=== PATIENT | female | born 1980 | race Caucasian/White ===

== ENCOUNTER 2017-03-02 04:00 | Emergency (ER) | payer MEDICAID ==
--- NOTE | 2017-03-02 04:53 | PD ---
HPI Chief Complaint Left lower quadrant pain,back pain Date Seen: Mar 02, 2017 Time Seen: 04:49 Travel History International Travel<30 Days: No Contact w/Intl Traveler<30Days: No Known Affected Area: No History of Present Illness HPI 36-year-old at 17 weeks today comes into the ED OB complaining of left lower quadrant pain that has been present since the beginning of her radiating at times to her back. Denies dysuria denies frequency of urination. She is concerned about her history of 3 prior miscarriages and she is seen in the [facility] Department. No vaginal bleeding is noted History Past Medical History Medical History: Denies Significant Hx Obstetric History Obstetric History Spontaneous vaginal delivery 1, 3 prior miscarriages Past Surgical History Surgical History: No Previous Surgery Family History Family History: Negative Social History Alcohol Use: No Tobacco Use: No Substance Abuse: No Review of Systems Except as stated in HPI: all other systems reviewed are Neg Physical Exam Narrative GENERAL: Well-nourished, well-developed patient. SKIN: Warm and dry. HEAD: Normocephalic and atraumatic. EYES: No scleral icterus. No injection or drainage. ENT: No nasal drainage noted. Mucous membranes pink. Airway patent. NECK: Supple, trachea midline. No JVD. CARDIOVASCULAR: Regular rate and rhythm without murmurs, gallops, or rubs. RESPIRATORY: Breath sounds equal bilaterally. No accessory muscle use. BREASTS: Bilateral exam showed no masses , no retractions, no nipple discharge. ABDOMEN/GI: Abdomen soft, non-tender, bowel sounds present, no rebound, no guarding,no pain with palpation in any of the quadrants. Gravid to [16-] weeks size Fundal Height: [-] GENITOURINARY: External Genitalia: intact and normal in appearance BUS glands: [Normal-] Cervix: [Posterior-] Dilatation: [-Closed] Effacement: [-Long] Station: [-High] Presentation: [Unknown-] Membranes: Intact Uterine Contractions: Absent FHT's: Per Doppler 142 Category: [-] Baseline: [-] Reactive: [-] Variability: [-] Decels: [-] EXTREMITIES: No cyanosis or edema. BACK: Nontender without obvious deformity. No CVA tenderness. NEUROLOGICAL: Awake and alert. Motor and sensory grossly within normal limits. Five out of 5 muscle strength in all muscle groups. Normal speech. Data Data Vital Signs Reviewed: Yes MDM Plan 36-year-old female at 17 weeks gestation with mild left lower quadrant pain. Request work release for today which was given Follow-up with health Department as directed Diagnosis Diagnosis: Primary Impression: 17 weeks gestation of Additional Impression: with abdominal pain of left lower quadrant, antepartum Disposition: 01 DISCHARGE HOME Rahel Jiménez MD Mar 02, 2017 04:53
== END 2017-03-02 04:55 | disposition home or self-care (01) ==
LOC: HOBED 04:00
DX: O26.892 Other specified pregnancy related conditions, second trimester (principal); Z3A.17 17 weeks gestation of pregnancy
CPT/HCPCS: 99284

== ENCOUNTER 2017-04-17 18:05 | Emergency (ER) | payer MEDICAID ==
[2017-04-17] MEDS ORDERED: SODIUM CHLOR 0.9% 1000 ML INJ 1,000 ML IV SCH (18:44)
[2017-04-17] MEDS ORDERED: ACETAMINOPHEN 325 MG TAB PO ONE (19:00)
--- NOTE | 2017-04-17 19:00 | PD ---
HPI Travel History International Travel<30 Days: No Contact w/Intl Traveler<30Days: No Known Affected Area: No History of Present Illness HPI This patient is a 36-year-old 2 para 1 EDC is August 10, 2017 presently at 23 weeks and 4 days patient was brought in by EMS she has the chief complaint of a headache which started at 11 AM and pain in both of her legs also has pain in the suprapubic area that also started earlier today pain described as sharp constant she states that the pain always hurts severe the baby is very active States that she discuss this with her doctor and nothing has been done today No rupture of membranes no vaginal bleeding no fever no chills no nausea no vomiting no diarrhea or constipation Last had a bowel movement earlier today Last ate at around 9 it stayed down Has urinary frequency but no pain with urination No discharge odors or itching 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 6 oz. vaginal delivery uncomplicated Past Surgical History Surgical History: No Previous Surgery Family History Narrative Family History Father with heart disease Social History Alcohol Use: No Tobacco Use: No Substance Abuse: No Allergies-Medications (Allergen,Severity, Reaction): Coded Allergies: No Known Allergies (Unverified , 04/17/17) Review of Systems General / Constitutional: No: Fever, Weight Gain, Weight Loss, Chills, Other Eyes: No: Diploplia, Blurred Vision, Visual changes, Pain, Photophobia, Other HENT: Headaches Cardiovascular: No: Irregular Rhythm, Chest Pain or Discomfort, Palpitations, Tachycardia, Syncope, Varicosities, Edema, Cyanosis, Other Respiratory: No: Cough, Short of Breath, Wheezing, Other Gastrointestinal: Abdominal Pain (as per history of present illness) Genitourinary: Frequency (as per history of present illness) Musculoskeletal: Weakness Skin: No Rash, No Itching, No Dryness, No Lumps, No Change in Pigmentation, No Change in Nails, No Alopecia, No Lesions, No Breast Lumps, No Breast Tenderness , No Breast Swelling, No Other Neurologic: No: Weakness, Dizziness, Syncope, Focal Abnormalities, Coordination Problem, Headache, Slurred Speech, Seizures, Other Physical Exam Narrative GENERAL: Well-nourished, well-developed patient. Alert oriented 3 and cooperative in no acute distress SKIN: Warm and dry. HEAD: Normocephalic and atraumatic. EYES: No scleral icterus. No injection or drainage. Conjunctiva are pink ENT: No nasal drainage noted. Mucous membranes pink. Airway patent. Mucous membranes are moist NECK: Supple, trachea midline. No JVD. No adenopathy no thyroid enlargement CARDIOVASCULAR: Regular rate and rhythm without murmurs, gallops, or rubs. No tachycardia RESPIRATORY: Breath sounds equal bilaterally. No accessory muscle use. No respiratory difficulty ABDOMEN/GI: Gravid consistent with stated gestational age soft no epigastric or right upper quadrant tenderness bowel sounds are normal mild suprapubic tenderness the uterus is soft no palpable contractions no rebound no organomegaly Gravid to [-] weeks size 24 weeks Fundal Height: [-] GENITOURINARY: Speculum exam is done: No blood no fluid no discharge thin white mucus the cervix is grossly closed grossly thick External Genitalia: intact and normal in appearance BUS glands: [-] Cervix: [-] Posterior firm Dilatation: [-] 0 Effacement: [-] 0 Station: [-] High Presentation: [-] Vertex on ultrasound Membranes: [intact Uterine Contractions: [-]0 FHT's: Category: [-] 1 Baseline: [-] 150 Reactive: [-] + Variability: [-] Moderate Decels: [-] 0 EXTREMITIES: No cyanosis or edema. 2+ reflexes nonbrisk BACK: Nontender without obvious deformity. No CVA tenderness. No tenderness at all on the back NEUROLOGICAL: Awake and alert. Motor and sensory grossly within normal limits. Five out of 5 muscle strength in all muscle groups. Normal speech. Data Data Vital Signs Reviewed: Yes (blood pressure is 124/75 pulse 76 temperature is 99.4) Orders Vital Signs (Adult) .ON ADMISSION (04/17/17 18:29) ^ Labor Status (04/17/17 18:29) Urinalysis - C+S If Indicated (04/17/17 18:29) ^ Hydration (04/17/17 18:29) Cbc No Diff, Includes Plts (04/17/17 18:44) Comprehensive Metabolic Panel (04/17/17 18:44) Fibronectin (04/17/17 18:44) Sodium Chlor 0.9% 1000 Ml Inj (Ns 1000 M (04/17/17 18:44) Labs Bedside ultrasound has been done the BPD is 5.51 equaling 22 weeks and 6 days Baby is very active Vertex presentation on ultrasound Largest pocket is 6.54 x 7.34 Posterior grade 1 placenta Cervical length 3.89 No funneling at the internal os MDM Medical Record Reviewed: No (no records are available) Interpretation(s) 36-year-old at 23 weeks and 4 days No clinical evidence of labor rupture of membranes Possible syncopal episode Rule out UTI Narrative Course / MDM Laboratory data; fibronectin is negative White count 11.2 hemoglobin 11 hematocrit 33 CMP within normal limits Urinalysis is negative Plan IV fluid hydration normal saline running upon presentation with EMS CBC CMP urinalysis fibronectin to evaluate for risk of labor These results were given to the patient She has been hydrated Baby is active No contractions Will give Vistaril 50 mg by mouth single dose Discharge home kick counts She is to make an appointment with her physician within the next 24-48 hours Diagnosis Diagnosis: Primary Impression: with 23 completed weeks gestation Additional Impression: Musculoskeletal pain Disposition: DISCHARGE HOME Condition: Stable Fela Goodrich MD Apr 17, 2017 19:00
[2017-04-17 19:22] LABS: HEMATOCRIT 33.1 % (35.0-46.0); MEAN CELL VOLUME 90.6 FL (80.0-100.0); MEAN CORPUSCULAR HEMOGLOBIN 30.1 PG (27.0-34.0); MEAN CORPUSCULAR HGB CONC 33.2 % (32.0-36.0); PLATELET COUNT 178 TH/MM3 (150-450); RED BLOOD COUNT 3.66 MIL/MM3 (4.00-5.30); RED CELL DISTRIBUTION WIDTH 14.5 % (11.6-17.2); REVIEW FLAG FINAL; WHITE BLOOD COUNT 11.2 TH/MM3 (4.0-11.0)
[2017-04-17 19:26] LABS: BLOOD, URINE NEG (NEG); GLUCOSE,URINE NEG (NEG); KETONE, URINE NEG (NEG); NITRITE,URINE NEG (NEG); URINE COLOR LIGHT-YELLOW (YELLW/STRAW)
[2017-04-17 19:33] LABS: ALT (GPT) 29 U/L (10-53); ANION GAP 9 MEQ/L (5-15); AST (GOT) 25 U/L (15-37); BLOOD UREA NITROGEN 8 MG/DL (7-18); CHLORIDE 104 MEQ/L (98-107); GLOMERULAR FILTRATION RATE 136 ML/MIN (>89); POTASSIUM 3.6 MEQ/L (3.5-5.1); SODIUM (NA) 137 MEQ/L (136-145)
[2017-04-17 19:36] LABS: ALKALINE PHOSPHATASE 51 U/L (45-117); TOTAL BILIRUBIN ADULT 0.2 MG/DL (0.2-1.0)
[2017-04-17 19:56] LABS: BACTERIA, URINE RARE /hpf; COMMENT (UR) CULT NOT INDICATED; COMMENT2 (UR) CULT NOT INDICATED; CULTURE IF INDICATED CULT NOT INDICATED; RBC, URINE 0-2 /hpf (0-3); SQUAMOUS EPITHELIAL CELL URINE 0-5 /hpf (0-5); WBC, URINE 0-2 /hpf (0-5)
== END 2017-04-17 19:15 | disposition home or self-care (01) ==
LOC: HOBED 18:05
DX: O09.522 Supervision of elderly multigravida, second trimester (principal); M79.1 Myalgia; Z3A.23 23 weeks gestation of pregnancy
CPT/HCPCS: 80053; 81001; 82731; 85027; 99284

== ENCOUNTER 2017-07-25 20:02 | Emergency (ER) | payer MEDICAID ==
--- NOTE | 2017-07-25 20:48 | PD ---
HPI Chief Complaint Contractions Date Seen: Jul 25, 2017 Time Seen: 20:44 Travel History International Travel<30 Days: No Contact w/Intl Traveler<30Days: No Known Affected Area: No History of Present Illness HPI 37-year-old at 38 weeks 5 days comes in complaining of contractions for the past 2 hours. Her spouse states that she has nocturnal contractions almost every night but they have lasted for longer this evening. Patient denies rupture membranes or vaginal bleeding. She has been seen by Dr Dale in [place] and denies obstetric complications. She is group B strep positive and has a history of a spontaneous vaginal delivery in the past Weeks Gestation: 38 Para: 1 : 5 Miscarriage: 3 History Past Medical History Medical History: Denies Significant Hx Obstetric History Obstetric History 1 Spontaneous miscarriage 3 Past Surgical History Surgical History: No Previous Surgery Family History Family History: Negative Social History Alcohol Use: No Tobacco Use: No Substance Abuse: No Allergies-Medications (Allergen,Severity, Reaction): Coded Allergies: No Known Allergies (Unverified , 04/17/17) Review of Systems Except as stated in HPI: all other systems reviewed are Neg Physical Exam Narrative GENERAL: Well-nourished, well-developed patient. SKIN: Warm and dry. HEAD: Normocephalic and atraumatic. EYES: No scleral icterus. No injection or drainage. ENT: No nasal drainage noted. Mucous membranes pink. Airway patent. NECK: Supple, trachea midline. No JVD. CARDIOVASCULAR: Regular rate and rhythm without murmurs, gallops, or rubs. RESPIRATORY: Breath sounds equal bilaterally. No accessory muscle use. BREASTS: Bilateral exam showed no masses , no retractions, no nipple discharge. ABDOMEN/GI: Abdomen soft, non-tender, bowel sounds present, no rebound, no guarding Gravid to [-38] weeks size Fundal Height: [-] GENITOURINARY: External Genitalia: intact and normal in appearance BUS glands: [-Normal] Cervix: [-Posterior] Dilatation: [1-2] Effacement: [-60] Station: [-2] Presentation: [Vertex] Membranes: [intact ] Uterine Contractions: [Every 5-] FHT's: Category: [-1] Baseline: [-140] Reactive: [-Moderate] Variability: [-Moderate] Decels: [-Absent] EXTREMITIES: No cyanosis or edema. BACK: Nontender without obvious deformity. No CVA tenderness. NEUROLOGICAL: Awake and alert. Motor and sensory grossly within normal limits. Five out of 5 muscle strength in all muscle groups. Normal speech. Recheck after 2 hours, no cervical change. Patient states contractions have decreased in intensity. Data Data Vital Signs Reviewed: Yes Group B Strep: Positive MDM Medical Record Reviewed: Yes Plan 37-year-old who is at 3839 weeks gestation and false labor Group B strep positive Plan for discharge and follow-up with OB provider this week Diagnosis Diagnosis: Primary Impression: Advanced maternal age in multigravida Additional Impressions: False labor after 37 completed weeks of gestation Positive GBS test Disposition: 01 DISCHARGE HOME Rahel Jiménez MD Jul 25, 2017 20:48
== END 2017-07-25 22:41 | disposition home or self-care (01) ==
LOC: HOBED 20:02
DX: O09.523 Supervision of elderly multigravida, third trimester (principal); O47.1 False labor at or after 37 completed weeks of gestation; O99.820 Streptococcus B carrier state complicating pregnancy; Z3A.38 38 weeks gestation of pregnancy
CPT/HCPCS: 59025

== ENCOUNTER 2017-08-03 10:59 | Emergency (ER) | payer MEDICAID ==
[~2017-08-03] VITALS: Ht 167.6 cm; Wt 90.7 kg
--- NOTE | 2017-08-03 11:30 | PD ---
HPI Chief Complaint Vaginal Bleeding Date Seen: Aug 03, 2017 Travel History International Travel<30 Days: No Contact w/Intl Traveler<30Days: No History of Present Illness HPI Mrs. Hwang is a at 40/0 weeks gestation presenting with vaginal bleeding. She states that this morning she found to quarter-sized drops of blood on her pad and decided to present to the OB ED for evaluation. She denies any contractions, loss of fluid, discharge, or dysuria. She does endorse good movement. She has been seen by Dr Dale in [place] and denies obstetric complications. She is group B strep positive and has a history of a spontaneous vaginal delivery in the past Weeks Gestation: 40 Para: 5 : 1 History Past Medical History Medical History: Denies Significant Hx Obstetric History Obstetric History x1 induced at 41 weeks Miscarriage x3 Past Surgical History Surgical History: No Previous Surgery Family History Family History: Negative Social History Alcohol Use: No Tobacco Use: No Substance Abuse: No Allergies-Medications (Allergen,Severity, Reaction): Coded Allergies: No Known Allergies (Unverified , 04/17/17) Review of Systems Except as stated in HPI: all other systems reviewed are Neg Physical Exam Narrative GENERAL: Well-nourished, well-developed patient. SKIN: Warm and dry. HEAD: Normocephalic and atraumatic. EYES: No scleral icterus. No injection or drainage. ENT: No nasal drainage noted. Mucous membranes pink. Airway patent. NECK: Supple, trachea midline. No JVD. CARDIOVASCULAR: Regular rate and rhythm without murmurs, gallops, or rubs. RESPIRATORY: Breath sounds equal bilaterally. No accessory muscle use. ABDOMEN/GI: Abdomen soft, non-tender, bowel sounds present, no rebound, no guarding Gravid to 40 weeks GENITOURINARY: External Genitalia: intact and normal in appearance Cervix: Clear Dilatation: 0-1 cm Effacement: 50% Station: -2 Membranes: Intact Uterine Contractions: None FHT's: Category: 1 Baseline: 140s Reactive: Pos Variability: Moderate Decels: None EXTREMITIES: No cyanosis or edema. BACK: Nontender without obvious deformity. No CVA tenderness. NEUROLOGICAL: Awake and alert. Motor and sensory grossly within normal limits. Five out of 5 muscle strength in all muscle groups. Normal speech. Data Data Vital Signs Reviewed: Yes Group B Strep: Positive MDM Medical Record Reviewed: Yes Plan Mrs. Hwang is a at 40/0 weeks gestation presenting with vaginal bleeding. 1. IUP at 40 weeks -Continue routine antepartum care -Continue PNV -Encourage PO hydration -FHT category 1, reassuring -GBS Positive -Amnisure negative 2. Vaginal Bleeding -No bleeding on exam -Vital signs stable Patient to be discharged home and instructed to follow-up with Dr. Dale. Explained to patient that she might have additional spotting as we checked her cervix today. Instructions given to patient on when to return to the ED for evaluation. All questions answered and patient voiced verbal understanding. SDW: Dr. Valencia Diagnosis Diagnosis: Primary Impression: 40 weeks gestation of Additional Impression: Vaginal spotting Disposition: DISCHARGE HOME Condition: Stable Patient Instructions: General Instructions, Early Labor Signs (ED), Having Your Baby: The Labor Process (GEN) Kyle Gonzalez MD R2 Aug 03, 2017 11:30
== END 2017-08-03 12:00 | disposition home or self-care (01) ==
LOC: HOBED 10:59
DX: O46.93 Antepartum hemorrhage, unspecified, third trimester (principal); O09.523 Supervision of elderly multigravida, third trimester; Z3A.40 40 weeks gestation of pregnancy
CPT/HCPCS: 59025; 84112

== ENCOUNTER 2017-08-05 00:54 | Inpatient (IN) | payer MEDICAID ==
--- NOTE | 2017-08-05 01:21 | PD ---
HPI Chief Complaint Leaking of fluid Travel History International Travel<30 Days: No Contact w/Intl Traveler<30Days: No Known Affected Area: No History of Present Illness HPI 37-year-old 031, IUP at 40.2 care, complicated by advanced maternal age, GBS positive The patient presents complaining of fluid at 12:30 AM, she reports this was a gush of clear fluid but she has not had much leaking since. The Patient reports good movement. Patient denies any vaginal bleeding, although has had some spotting. The patient reports painful contractions every 7-10 minutes. She reports they've increased in intensity and frequency. The patient denies any headache, visual changes, right upper quadrant or epigastric pain. Weeks Gestation: 40 Para: 1 : 5 History Past Medical History Narrative Medical Obesity Medical History: Denies Significant Hx Obstetric History Obstetric History 031 EAB 1 SAB 2 1 Past Surgical History Narrative Surgical D&C Family History Family History: Negative Social History Alcohol Use: No Tobacco Use: No Substance Abuse: No Allergies-Medications (Allergen,Severity, Reaction): Coded Allergies: No Known Allergies (Unverified , 08/05/17) Review of Systems Except as stated in HPI: all other systems reviewed are Neg Physical Exam Narrative GENERAL: Well-nourished, well-developed patient. SKIN: Warm and dry. HEAD: Normocephalic and atraumatic. EYES: No scleral icterus. No injection or drainage. ENT: No nasal drainage noted. Mucous membranes pink. Airway patent. NECK: Supple, trachea midline. No JVD. CARDIOVASCULAR: Regular rate and rhythm without murmurs, gallops, or rubs. RESPIRATORY: Breath sounds equal bilaterally. No accessory muscle use. BREASTS: Deferred ABDOMEN/GI: Abdomen soft, non-tender, bowel sounds present, no rebound, no guarding Gravid GENITOURINARY: External Genitalia: intact and normal in appearance. Normal BUS glands. Small amount of spotting is noted. Grossly normal rugae. Small amount of leaking was noted on my glove however the amniosure was negative. SVE 3, 50, -3 , cephalic. FHT's: Baseline heart tones in the 120s with good accelerations, no decelerations, and moderate long-term variability. The patient has a category 1 heart rate tracing that is reactive and appropriate for gestational age. EXTREMITIES: No cyanosis or edema. BACK: Nontender without obvious deformity. No CVA tenderness. NEUROLOGICAL: Awake and alert. Motor and sensory grossly within normal limits. Five out of 5 muscle strength in all muscle groups. Normal speech. musculoskeletal: Grossly normal ROM, gait, muscle strength line psychiatric: Grossly normal memory and affect Psychiatric: Grossly normal memory and affect MDM Plan Assessment/plan: 1. IUP at 40.2 2. LOF: The patient's history is suspicious for rupture of membranes however amniosure was negative. A small amount of thin fluid was noted at the time of exam but there was no obvious gross rupture membranes and membranes are palpable. 3. Advanced maternal age 4. GBS positive: Rx penicillin G 5. well-being: Reassuring testing with category 1 heart rate tracing and heart rate is reactive and appropriate for gestational age. 6. Elevated blood pressure: We'll order preeclampsia labs, admitted for elevated blood pressures at term with possible rupture of membranes. Discussed the risk of a vaginal delivery as well as risks and indications for delivery. All the patient's questions were answered. Noris Amaro MD Aug 05, 2017 01:21
[2017-08-05] MEDS ORDERED: LACTATED RINGER'S 1000 ML INJ 1,000 ML IV SCH (02:06)
[2017-08-05] MEDS ORDERED: LACTATED RINGER'S 1000 ML INJ 1,000 ML IV PRN (02:06)
[2017-08-05] MEDS ORDERED: CITRIC ACID-SODIUM CITRATE LIQ 30 ML UDC PO SCH (02:15)
[2017-08-05] MEDS ORDERED: LIDOCAINE HCL 1% 50 ML VIAL INFIL PRN (02:15)
[2017-08-05] MEDS ORDERED: OXYTOCIN 30 UNITS-500ML PREMIX 500 ML IV ONE ×2 (02:15→15:45)
[2017-08-05] MEDS ORDERED: SODIUM CHLORID 0.9% 500 ML INJ 500 ML IV PRN (02:15)
[2017-08-05] MEDS ORDERED: LIDOCAINE HCL 1% 50 ML VIAL I-DERMAL PRN (02:15)
[2017-08-05] MEDS ORDERED: PENICILLIN G POTASSIUM INJ 5,000,000 UNITS in SODIUM CHLORIDE 0.9% INJ 100 ML IV ONE (02:15)
[2017-08-05] MEDS ORDERED: MINERAL OIL 10 ML VIAL TOPICAL PRN (02:15)
[2017-08-05] MEDS ORDERED: SODIUM CHLOR 0.9% 1000 ML INJ 1,000 ML IV PRN (02:26)
[2017-08-05] MEDS ORDERED: OXYTOCIN 30 UNITS-500ML PREMIX 500 ML IV SCH ×3 (03:15→14:15)
[2017-08-05 03:54] LABS: AUTOMATED NEUTROPHIL # 6.7 TH/MM3 (1.8-7.7); BASOPHIL % 0.4 % (0.0-2.0); EOSINOPHIL # 0.1 TH/MM3 (0-0.4); EOSINOPHIL % 0.9 % (0.0-4.0); HEMATOCRIT 38.9 % (35.0-46.0); HEMO FLAGS DIFF FINAL; LYMPH % 21.7 % (9.0-44.0); LYMPHOCYTE # 2.2 TH/MM3 (1.0-4.8); MEAN CELL VOLUME 90.9 FL (80.0-100.0); MEAN CORPUSCULAR HEMOGLOBIN 30.1 PG (27.0-34.0); MEAN CORPUSCULAR HGB CONC 33.1 % (32.0-36.0); MONO % 9.5 % (0.0-8.0); NEUT % 67.5 % (16.0-70.0); PLATELET COUNT 154 TH/MM3 (150-450); RED BLOOD COUNT 4.28 MIL/MM3 (4.00-5.30); RED CELL DISTRIBUTION WIDTH 15.2 % (11.6-17.2); WHITE BLOOD COUNT 9.9 TH/MM3 (4.0-11.0)
[2017-08-05 04:10] LABS: BLOOD, URINE MOD (NEG); COMMENT (UR) CULT NOT INDICATED; CULTURE IF INDICATED CULT NOT INDICATED; GLUCOSE,URINE NEG (NEG); KETONE, URINE NEG (NEG); MUCUS URINE FEW /lpf (OCC); NITRITE,URINE NEG (NEG); SQUAMOUS EPITHELIAL CELL URINE 1 /hpf (0-5); URINE COLOR LIGHT-YELLOW (YELLW/STRAW)
[2017-08-05 04:15] LABS: ALT (GPT) 22 U/L (10-53); ANION GAP 9 MEQ/L (5-15); AST (GOT) 17 U/L (15-37); BICARBONATE 20.1 MEQ/L (21.0-32.0); BLOOD UREA NITROGEN 7 MG/DL (7-18); CHLORIDE 108 MEQ/L (98-107); GLOMERULAR FILTRATION RATE 110 ML/MIN (>89); POTASSIUM 3.8 MEQ/L (3.5-5.1); SODIUM (NA) 137 MEQ/L (136-145)
[2017-08-05 04:17] LABS: ALKALINE PHOSPHATASE 157 U/L (45-117); TOTAL BILIRUBIN ADULT 0.3 MG/DL (0.2-1.0)
[2017-08-05] MEDS: PENICILLIN G POTASSIUM INJ 2,500,000 UNITS in SODIUM CHLORIDE 0.9% INJ 100 ML IV SCH ×2 (06:00→11:07)
--- NOTE | 2017-08-05 10:05 | PD.LABORPN ---
Subjective Subjective vaginal exam done. SROM occurred during vaginal exam. Pt has no complaints. Objective Objective Pelvic Exam: Cervix: midposition Dilatation: 3 Effacement: 70 Station: -2 Membranes: SROM Uterine Contractions: present, every 3 mins FHT's: Category: 1 Baseline: 120 Reactive: positive Variability: moderate Decels: none Weeks Gestation: 40 Gest Age Assessed Date: Aug 05, 2017 Gest Age Assessed Time: 10:00 Pt started active labor?: Yes Active labor start date: Aug 05, 2017 Active labor start time: 06:30 Medical induction of labor?: Yes Medical induction start date: Aug 05, 2017 Medical induction start time: 06:30 Artificial rupture of membrane: No Assessment/Plan Problem List: (1) 40 weeks gestation of ICD Codes: Z3A.40 - 40 weeks gestation of Status: Acute Assessment and Plan 37 yo at 40/2 admitted for labor induction. 1. IUP at 40/2 -oxytocin started per protocol -GBS positive on Pen G -will continue to monitor labor progression -SROM on vaginal exam sdw Demian Garcia MD R1 Aug 05, 2017 10:05
--- NOTE | 2017-08-05 11:03 | HHI.HP ---
History & Physical H&P Note is done by Dr. Noris Amaro on admission 08/04/17. HPI Chief Complaint Leaking of fluid Travel History International Travel<30 Days: No Contact w/Intl Traveler<30Days: No Known Affected Area: No History of Present Illness HPI 37-year-old 031, IUP at 40.2 care, complicated by advanced maternal age, GBS positive The patient presents complaining of fluid at 12:30 AM, she reports this was a gush of clear fluid but she has not had much leaking since. The Patient reports good movement. Patient denies any vaginal bleeding, although has had some spotting. The patient reports painful contractions every 7-10 minutes. She reports they've increased in intensity and frequency. The patient denies any headache, visual changes, right upper quadrant or epigastric pain. Weeks Gestation: 40 Para: 1 : 5 History (Limited) History Past Medical History Narrative Medical Obesity Medical History: Denies Significant Hx Obstetric History Obstetric History 031 EAB 1 SAB 2 1 Past Surgical History Narrative Surgical D&C Family History Family History: Negative Social History Alcohol Use: No Tobacco Use: No Substance Abuse: No Allergies-Medications Allergies-Medications (Allergen,Severity, Reaction): Coded Allergies: No Known Allergies (Unverified , 08/05/17) ROS Review of Systems Except as stated in HPI: all other systems reviewed are Neg Physical Exam Physical Exam Narrative GENERAL: Well-nourished, well-developed patient. SKIN: Warm and dry. HEAD: Normocephalic and atraumatic. EYES: No scleral icterus. No injection or drainage. ENT: No nasal drainage noted. Mucous membranes pink. Airway patent. NECK: Supple, trachea midline. No JVD. CARDIOVASCULAR: Regular rate and rhythm without murmurs, gallops, or rubs. RESPIRATORY: Breath sounds equal bilaterally. No accessory muscle use. BREASTS: Deferred ABDOMEN/GI: Abdomen soft, non-tender, bowel sounds present, no rebound, no guarding Gravid GENITOURINARY: External Genitalia: intact and normal in appearance. Normal BUS glands. Small amount of spotting is noted. Grossly normal rugae. Small amount of leaking was noted on my glove however the amniosure was negative. SVE 3, 50, -3 , cephalic. FHT's: Baseline heart tones in the 120s with good accelerations, no decelerations, and moderate long-term variability. The patient has a category 1 heart rate tracing that is reactive and appropriate for gestational age. EXTREMITIES: No cyanosis or edema. BACK: Nontender without obvious deformity. No CVA tenderness. NEUROLOGICAL: Awake and alert. Motor and sensory grossly within normal limits. Five out of 5 muscle strength in all muscle groups. Normal speech. musculoskeletal: Grossly normal ROM, gait, muscle strength line psychiatric: Grossly normal memory and affect Psychiatric: Grossly normal memory and affect Data Data MDM MDM Plan Assessment/plan: 1. IUP at 40.2 2. LOF: The patient's history is suspicious for rupture of membranes however amniosure was negative. A small amount of thin fluid was noted at the time of exam but there was no obvious gross rupture membranes and membranes are palpable. 3. Advanced maternal age 4. GBS positive: Rx penicillin G 5. well-being: Reassuring testing with category 1 heart rate tracing and heart rate is reactive and appropriate for gestational age. 6. Elevated blood pressure: We'll order preeclampsia labs, admitted for elevated blood pressures at term with possible rupture of membranes. Discussed the risk of a vaginal delivery as well as risks and indications for delivery. All the patient's questions were answered. Noris Amaro MD Note is done by Dr. Noris Amaro on admission 08/04/17. Kyle Gonzalez MD R2 Aug 05, 2017 11:03
[2017-08-05] MEDS ORDERED: fentaNYL 2MCG-BUPIV 0.125% INJ 100 ML ONE (11:39)
--- NOTE | 2017-08-05 13:35 | PD.OB.DELI ---
Weeks gestation: 40 Gest age assessed date: Aug 05, 2017 Gest age assessed time: 10:00 Pt started active labor?: Yes Active labor start date: Aug 05, 2017 Active labor start time: 06:30 Medical induction of labor?: Yes Medical induction start date: Aug 05, 2017 Medical induction start time: 06:30 Artificial rupture of membrane: No Anesthesia: Epidural Vaginal Delivery: Normal Presentation: Occiput anterior Nuchal Cord: None Delayed cord clamping (45 sec): Yes Infant: Female Delivery date: Aug 05, 2017 Delivery time: 13:21 One Minute : 8 Five Minute : 9 Weight: 2980 Placenta: Spontaneous delivery Laceration: No lacerations Estimated blood loss: 300cc Additional Information Delivery performed by Dr. Dumont Assist: Dr. Valencia, Dr. Gonzalez 2 Periurethral primary lacerations not requiring repair. Update 1415: -Nursing staff notified MD of continued vaginal bleeding of approximately 150- 200cc with clots and small placenta material. Uterine massage applied and is firm below the umbilicus. VS remain stable with BP of 130s/100s. -Oxytocin 500/30 x1 bag ordered with 300mg Cytotec to be administered. -Continue to monitor. Kyle Gonzalez MD R2 Aug 05, 2017 13:35
[2017-08-05] MEDS ORDERED: SODIUM CHLORIDE 0.9% FLUSH 10 ML FLUSH IV FLUSH PRN (13:45)
[2017-08-05] MEDS ORDERED: ALUMINUM/MAGNESIUM/SIMETH 30 ML CUP PO PRN (14:00)
[2017-08-05] MEDS ORDERED: WITCH HAZEL 50%/GLYCERIN 12.5% 40 PAD JAR TOPICAL PRN (14:00)
[2017-08-05] MEDS ORDERED: BENZOCAINE 20% TOPICAL SPRAY 60 ML CAN TOPICAL PRN (14:00)
[2017-08-05] MEDS ORDERED: ONDANSETRON ODT 4 MG TAB PO PRN (14:00)
[2017-08-05] MEDS ORDERED: MISOPROSTOL 200 MCG TAB ONE (14:08)
[2017-08-05] MEDS ORDERED: DO NOT ADMINISTER ANTICOAGULANTS PRN (14:15)
[2017-08-05] MEDS ORDERED: fentaNYL 2MCG-BUPIV 0.125% 100 ML EPIDURAL SCH (14:15)
[2017-08-05] MEDS ORDERED: NO SYSTEM NARCOTICS PRN (14:15)
[2017-08-05] MEDS ORDERED: ePHEDrine/NS 25 MG/5 ML SYR IV PRN (14:15)
[2017-08-05] MEDS ORDERED: MISOPROSTOL 100 MCG TAB RECTAL ONE (14:30)
[2017-08-05] MEDS ORDERED: METHYLERGONOVINE MALEATE 0.2 MG/ML VIAL ONE (14:31)
[2017-08-05] MEDS ORDERED: CARBOPROST TROMETHAMINE 250 MCG/ML VIAL ONE (14:39)
[2017-08-05] MEDS ORDERED: NIFEdipine 10 MG CAP ONE (15:21)
[2017-08-05] MEDS ORDERED: NIFEdipine 10 MG CAP PO PRN ×3 (15:30→16:00)
[2017-08-05] MEDS ORDERED: OXYTOCIN IV SCH (15:45)
[2017-08-05] MEDS ORDERED: LACTATED RINGER S IV SCH (15:45)
[2017-08-05] MEDS ORDERED: ACETAMINOPHEN 325 MG TAB PO PRN (16:00)
[2017-08-05] MEDS ORDERED: MEASLES, MUMPS, RUBELLA VACCINE 0.5 ML VIAL SQ ONE (16:00)
[2017-08-05] MEDS ORDERED: DIPHTH/TETANUS/ACEL PERTUSSIS (BOOSTER) 0.5 ML VIAL/PFS IM ONE (16:00)
--- NOTE | 2017-08-05 16:00 | HHI.PR ---
Addendum to Inpatient Note Addendum Reason: Additional Documentation Additional Information S: Shortly after patient had given , [employer] team notified by nursing staff patient continue her vaginal bleeding for approximately 300 mL with additional clots and possible retained products of conception. Patient received second bag of 500/30 oxytocin with 300 mcg Cytotec given rectally after fundal massage. Patient continued to bleed again of approximately 300 mL with multiple clots. 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 Patient states she is slightly nauseous, but has no other complaints. O: V: 141/66, 94 bpm, RR 17, 100%, 98 degrees GENERAL: Well-nourished, well-developed patient lying in bed slightly nauseous. SKIN: Warm and dry. No rash. EYES: No scleral icterus. No injection or drainage. PERRLA. EOMI. HENT: Normocephalic. Atraumatic. MMM. NECK: No visible JVD or lymphadenopathy. CARDIOVASCULAR: Warm and well perfused. RESPIRATORY: Normal respiratory effort. GASTROINTESTINAL: Abdomen nondistended. MUSCULOSKELETAL: Strength returning to LE, but not at full strength. Otherwise WNL. NEURO/PSYCH: Afocal. Awake, alert, and oriented x3. : Rangel in place without hemorrhage. Uterus firm below the umbilicus upon palpation. Vagina bleeding A: Ms. Hwang is a 37 y/o G5 now P2 who is PPD #0 after . P: -Manual exploration of the uterus and vagina. Multiple clots and small retained products of conception evacuated. -Oxytocin 500/30 x2 previously ordered. One additional bag ordered. -LR 1L with 20u of Oxytocin to run after 500/30 Oxytocin bag -Cytotec 300mg previously given -Hemabate 250mcg previously given -Patient BP elevated to 170s after initial evaluation, Procardia ordered per protocol -Continue to monitor Kyle Gonzalez MD R2 Aug 05, 2017 16:00
[2017-08-05] MEDS ORDERED: KETOROLAC TROMETHAMINE 60 MG/2 ML (IM) VIAL IM ONE (16:16)
[2017-08-05] MEDS ORDERED: ONDANSETRON HCL 4 MG/2 ML VIAL IV PUSH ONE (16:30)
[2017-08-05] MEDS ORDERED: KETOROLAC TROMETHAMINE 30 MG/ML (IVP) VIAL IV PUSH ONE (16:30)
[2017-08-05 18:22] LABS: HEMATOCRIT 40.3 % (35.0-46.0); MEAN CELL VOLUME 91.3 FL (80.0-100.0); MEAN CORPUSCULAR HEMOGLOBIN 30.5 PG (27.0-34.0); MEAN CORPUSCULAR HGB CONC 33.4 % (32.0-36.0); PLATELET COUNT 158 TH/MM3 (150-450); RED BLOOD COUNT 4.42 MIL/MM3 (4.00-5.30); RED CELL DISTRIBUTION WIDTH 15.4 % (11.6-17.2); REVIEW FLAG FINAL; WHITE BLOOD COUNT 20.1 TH/MM3 (4.0-11.0)
[2017-08-05] MEDS ORDERED: DOCUSATE SODIUM 50 MG/SENNA 8.6 MG TAB PO PRN (21:00)
[2017-08-05] MEDS ORDERED: ZOLPIDEM TARTRATE 5 MG TAB PO PRN (21:00)
[2017-08-05] MEDS: IBUPROFEN 600 MG TAB PO PRN (22:30)
[2017-08-06 06:58] LABS: HEMATOCRIT 31.6 % (35.0-46.0); MEAN CELL VOLUME 90.6 FL (80.0-100.0); MEAN CORPUSCULAR HGB CONC 33.1 % (32.0-36.0); PLATELET COUNT 151 TH/MM3 (150-450); RED BLOOD COUNT 3.49 MIL/MM3 (4.00-5.30); RED CELL DISTRIBUTION WIDTH 15.8 % (11.6-17.2); REVIEW FLAG FINAL; WHITE BLOOD COUNT 16.4 TH/MM3 (4.0-11.0)
--- NOTE | 2017-08-06 08:21 | HHI.OB ---
Subjective Post Day: 1 Remarks Pt seen and examined this morning. day # 1 AFVSS overnight. Decreased lochia. Denies dysuria. No breast tenderness. She is feeding the baby via breast. Appetite good. No nausea or vomiting. Patient has not yet had a bowel movement, but has passed bowel gas. Ambulating well. Denies calf pain or shortness of breath. Otherwise, she is doing well this morning and has no other concerns. Objective Objective Remarks GENERAL: Well-nourished, well-developed patient. CARDIOVASCULAR: Regular rate and rhythm without murmurs, gallops, or rubs. RESPIRATORY: Breath sounds equal bilaterally. No accessory muscle use. ABDOMEN/GI: Abdomen soft, non-tender. Fundus: Firm, non-tender at umbilicus. GENITOURINARY: Light to moderate bleeding. EXTREMITIES: No cyanosis or edema, non-tender, without signs of DVT. Medications and IVs Current Medications Medications (Trade) Dose Ordered Sig/Cecilia Route Start Time Stop Time Status Last Admin (NS Flush) 2 ml BID IV FLUSH 08/05/17 21:00 (NS Flush) 2 ml UNSCH PRN IV FLUSH 08/05/17 13:45 (Tylenol) 650 mg Q4HR PRN PO 08/05/17 16:00 (Motrin) 600 mg Q6H PRN PO 08/05/17 14:00 08/05/17 22:30 (Americaine 20% Top Spr) 1 spray Q4H PRN TOPICAL 08/05/17 14:00 (Tucks Pads) 1 applic QID PRN TOPICAL 08/05/17 14:00 (Nela-Colace) 2 tab Q12HR PRN PO 08/05/17 21:00 (Ambien) 5 mg HS PRN PO 08/05/17 21:00 08/05/17 22:30 (Mag-Al Plus Susp Liq) 15 ml Q8HR PRN PO 08/05/17 14:00 (Zofran Odt) 4 mg Q6H PRN PO 08/05/17 14:00 Miscellaneous Information No systemic narcotics to be given except... UNSCH PRN .XX 08/05/17 14:15 08/06/17 14:14 Miscellaneous Information DO NOT ADMINISTER ANY ANTICOAGUL... UNSCH PRN .XX 08/05/17 14:15 08/06/17 14:14 Fentanyl/ Bupivacaine HCl 100 ml @ 0 mls/hr TITRATE EPIDURAL 08/05/17 14:15 (ePHEDrine/NS 25 MG/5 ML SYR) 10 mg UNSCH PRN IV 08/05/17 14:15 08/06/17 14:14 (Procardia) 20 mg NOW PRN PO 08/05/17 15:45 08/06/17 23:59 (Procardia) 20 mg NOW PRN PO 08/05/17 16:00 08/06/17 23:59 Oxytocin 20 units/ Lactated Ringer's 1,002 ml @ 100 mls/hr Q10H2M IV 08/05/17 16:15 Assessment/Plan Problem List: (1) 40 weeks gestation of ICD Codes: Z3A.40 - 40 weeks gestation of Status: Acute (2) (spontaneous vaginal delivery) ICD Codes: O80 - Encounter for full-term uncomplicated delivery Status: Acute Assessment and Plan 37 y/o female who is day # 1 s/p . -Continue routine care. -Motrin PRN pain. -Patient with hemorrhage receiving multiple doses of Cytotec, Pitocin , and Hemabate after manual uterine extraction -Repeat H/H: 10.5/31.6 -Encouraged OOB. Advised pelvic rest for 6 wks. -Re: ctrl, she would like to contemplate her options. -Anticipate discharge likely tomorrow with baby. gricelda Valencia MD Discharge Planning likely tomorrow pending clinical course Kyle Gonzalez MD R2 Aug 06, 2017 08:21
[2017-08-06] MEDS: SODIUM CHLORIDE 0.9% FLUSH 10 ML FLUSH IV FLUSH SCH ×2 (11:30→22:17)
[2017-08-06] MEDS: OXYTOCIN INJ 20 UNITS in LACTATED RINGER'S 1000 ML INJ 1,000 ML IV SCH ×2 (11:37→22:21)
[2017-08-06 12:13] VITALS: BP 114/70; PULSE 70; RESP 18; TEMP 98.6
[2017-08-06] MEDS ORDERED: METHYLERGONOVINE MALEATE 0.2 MG/ML VIAL IM ONE (12:30)
[2017-08-06] MEDS: IBUPROFEN 600 MG TAB PO PRN (17:26)
[2017-08-06] MEDS: METHYLERGONOVINE MALEATE 0.2 MG TAB PO SCH (18:13)
[2017-08-07] MEDS: IBUPROFEN 600 MG TAB PO PRN (00:11)
[2017-08-07] MEDS: METHYLERGONOVINE MALEATE 0.2 MG TAB PO SCH ×2 (00:11→06:00)
[2017-08-07] MEDS ORDERED: IBUP-232 PO (08:23)
[2017-08-07] MEDS ORDERED: SENN1TAB PO (08:23)
[2017-08-07] MEDS: OXYTOCIN INJ 20 UNITS in LACTATED RINGER'S 1000 ML INJ 1,000 ML IV SCH (08:23)
--- NOTE | 2017-08-07 08:23 | HHI.DCPOC ---
Discharge Care Plan Diagnosis: (1) (spontaneous vaginal delivery) Report Symptoms to Your Doctor -Temperature above 100.5 degrees -Redness, of incision or excessive or foul smelling drainage -Unusual pain or calf pain -Increased vaginal bleeding -Painful or difficulty urinating -Feelings of extreme sadness or anxiety after 2 weeks Goals to Promote Your Health * To prevent worsening of your condition and complications * To maintain your health at the optimal level Directions to Meet Your Goals Take your medications as prescribed Follow your dietary instruction Follow activity as directed Ensure plenty of rest for recovery Drink fluids for hydration Keep your appointments as scheduled Take your immunizations and boosters as scheduled If your symptoms worsen call your PCP, if no PCP go to Urgent Care Center or Emergency Room Smoking is Dangerous to Your Health. Avoid second hand smoke Call the 24-hour crisis hotline for domestic abuse at Kyle Gonzalez MD R2 Aug 07, 2017 08:23
[2017-08-07] MEDS ORDERED: FERR325T8 PO (10:06)
--- NOTE | 2017-08-07 10:31 | HHI.OB ---
Subjective Post Day: 2 Remarks Pt seen and examined this morning. day # 2 AFVSS overnight. Decreased lochia. Denies dysuria. No breast tenderness. She is feeding the baby via breast and bottle. Appetite good. No nausea or vomiting. Patient endorses having a bowel movement and passing bowel gas. Ambulating well. Denies calf pain or shortness of breath. Otherwise, she is doing well this morning and has no other concerns. Objective Vitals/I&O Vital Signs Date Time Temp Pulse Resp B/P (MAP) Pulse Ox O2 Delivery O2 Flow Rate FiO2 08/06/17 12:13 98.6 70 18 114/70 (85) Intake & Output 08/07/17 08/07/17 07:00 19:00 Intake Total 1600 ml Balance 1600 ml Intake IV Total 1600 ml Objective Remarks GENERAL: Well-nourished, well-developed patient. CARDIOVASCULAR: Regular rate and rhythm without murmurs, gallops, or rubs. RESPIRATORY: Breath sounds equal bilaterally. No accessory muscle use. ABDOMEN/GI: Abdomen soft, non-tender. Fundus: Firm, non-tender at umbilicus. GENITOURINARY: Light to moderate bleeding. EXTREMITIES: No cyanosis or edema, non-tender, without signs of DVT. Medications and IVs Current Medications Medications (Trade) Dose Ordered Sig/Cecilia Route Start Time Stop Time Status Last Admin (NS Flush) 2 ml BID IV FLUSH 08/05/17 21:00 08/06/17 22:17 (NS Flush) 2 ml UNSCH PRN IV FLUSH 08/05/17 13:45 (Tylenol) 650 mg Q4HR PRN PO 08/05/17 16:00 (Motrin) 600 mg Q6H PRN PO 08/05/17 14:00 08/07/17 00:11 (Americaine 20% Top Spr) 1 spray Q4H PRN TOPICAL 08/05/17 14:00 (Tucks Pads) 1 applic QID PRN TOPICAL 08/05/17 14:00 (Nela-Colace) 2 tab Q12HR PRN PO 08/05/17 21:00 08/07/17 00:11 (Ambien) 5 mg HS PRN PO 08/05/17 21:00 08/05/17 22:30 (Mag-Al Plus Susp Liq) 15 ml Q8HR PRN PO 08/05/17 14:00 (Zofran Odt) 4 mg Q6H PRN PO 08/05/17 14:00 Fentanyl/ Bupivacaine HCl 100 ml @ 0 mls/hr TITRATE EPIDURAL 08/05/17 14:15 Oxytocin 20 units/ Lactated Ringer's 1,002 ml @ 100 mls/hr Q10H2M IV 08/05/17 16:15 (Methergine) 0.2 mg Q6HR PO 08/06/17 18:00 08/07/17 06:00 Assessment/Plan Problem List: (1) 40 weeks gestation of ICD Codes: Z3A.40 - 40 weeks gestation of Status: Acute (2) (spontaneous vaginal delivery) ICD Codes: O80 - Encounter for full-term uncomplicated delivery Status: Acute Assessment and Plan 37 y/o female who is day # 2 s/p . -Continue routine care. -Motrin PRN pain. -Patient with hemorrhage receiving multiple doses of Cytotec, Pitocin , and Hemabate after manual uterine extraction -Repeat H/H: 10.5/31.6 -Encouraged OOB. Advised pelvic rest for 6 wks. -Re: ctrl, she would like to contemplate her options. -Anticipate discharge likely today with baby. Patient to be discharged home with Motrin for cramping, Nela-Colace for constipation, and ferrous sulfate for anemia. Patient to follow-up with her PCP, Dr. Solares, in 6 weeks for routine check. gricelda Amaro MD Discharge Planning Today with baby Kyle Gonzalez MD R2 Aug 07, 2017 10:31
[2017-08-07 11:59] VITALS: BP 133/91; PULSE 69; RESP 16; TEMP 98.3
[2017-08-07 17:15] VITALS: BP 139/89; PULSE 69; RESP 18; TEMP 98.4
== END 2017-08-07 18:40 | disposition home or self-care (01) | DRG 767 ==
LOC: HOBED 00:54 → H2EA 01:55 → H1EA 17:57
PROVIDERS: ADMIT Obstetrics & Gynecology; ATTEND Obstetrics & Gynecology
PROC: 10E0XZZ Delivery of Products of Conception, External Approach (ICD-10-PCS; principal; 2017-08-05)
PROC: 10D17ZZ Extraction of Products of Conception, Retained, Via Natural or Artificial Opening (ICD-10-PCS; 2017-08-05)
PROC: 00HU33Z Insertion of Infusion Device into Spinal Canal, Percutaneous Approach (ICD-10-PCS; 2017-08-05)
PROC: 3E0R3CZ (ICD-10-PCS; 2017-08-05)
DX: O99.824 Streptococcus B carrier state complicating childbirth (principal); O71.82 Other specified trauma to perineum and vulva; O72.2 Delayed and secondary postpartum hemorrhage; Z37.0 Single live birth; Z3A.40 40 weeks gestation of pregnancy; O90.81 Anemia of the puerperium
CPT/HCPCS: 59025; 80053; 81001; 82570; 84112; 84156; 85025; 85027; 86900; 86901; 90715; J1885; J2210; J2405; J2540; J2590; J3010; J7120

== ENCOUNTER 2017-09-25 16:19 | Emergency (ER) | payer MEDICAID ==
[~2017-09-25] VITALS: Ht 167.6 cm; Wt 85.0 kg
[~2017-09-25 16:19] MED LIST: FERR325T18 PO; IBUP-232 PO; SENN1TAB PO
[2017-09-25 16:20] VITALS: BP 144/90; PULSE 66; RESP 15; TEMP 98.7; O2SAT 99
[2017-09-25 18:00] VITALS: BP 154/90; PULSE 60; RESP 18; TEMP 98.3; O2SAT 100
--- NOTE | 2017-09-25 18:18 | PD ---
HPI Chief Complaint: Cold / Flu Symptoms Time Seen by Provider: 18:11 Travel History International Travel<30 days: No Contact w/Intl Traveler<30days: No Traveled to known affect area: No History of Present Illness HPI 37-year-old female here for evaluation of fever, sore throat, cough, generalized malaise. Symptoms; on for last 3-4 days. Cough is productive of greenish sputum. She has been taking Aleve. No abdominal pain, nausea, vomiting, or diarrhea. No rash. PFSH Past Medical History ?: Not Social History Alcohol Use: No Tobacco Use: No Allergies-Medications (Allergen,Severity, Reaction): Coded Allergies: No Known Allergies (Unverified Adverse Reaction, Unknown, 09/25/17) Reported Meds & Prescriptions Reported Meds & Active Scripts Active Ferrous Sulfate 325 Mg (65 Mg Iron) Tablet 325 Mg PO DAILY Senna Plus 8.6-50 mg (Sennosides-Docusate Sodium) 8.6 Mg-50 Mg Tab 2 Tab PO Q12HR PRN Ibuprofen 600 Mg Tab 600 Mg PO Q6H PRN Review of Systems Except as stated in HPI: all other systems reviewed are Neg Physical Exam Narrative GENERAL: Well-developed, well-nourished, comfortable, no apparent distress. SKIN: Focused skin assessment warm/dry. No rash. HEAD: Atraumatic. Normocephalic. EYES: Pupils equal and round. No scleral icterus. No injection or drainage. ENT: No nasal bleeding or discharge. Mucous membranes pink and moist. Moderate pharyngeal erythema. No exudates. Uvula midline. No drooling or stridor. Bilateral tympanic written and external auditory canals are normal. NECK: Trachea midline. No JVD. No nuchal rigidity. CARDIOVASCULAR: Regular rate and rhythm. RESPIRATORY: No accessory muscle use. Clear to auscultation. Breath sounds equal bilaterally. GASTROINTESTINAL: Abdomen soft, non-tender, nondistended. MUSCULOSKELETAL: No obvious deformities. No clubbing. No cyanosis. No edema. NEUROLOGICAL: Awake and alert. No obvious cranial nerve deficits. Motor grossly within normal limits. Normal speech. PSYCHIATRIC: Appropriate mood and affect; insight and judgment normal. Data Data Last Documented VS Vital Signs Date Time Temp Pulse Resp B/P (MAP) Pulse Ox O2 Delivery O2 Flow Rate FiO2 09/25/17 19:22 65 18 164/100 (121) 100 Room Air 09/25/17 18:00 98.3 Orders Orders Influenzae A/B Antigen (09/25/17 18:15) Chest, Single Ap (09/25/17 ) Group A Rapid Strep Screen (09/25/17 19:57) Strep Culture (Group A) (09/25/17 18:40) Ibuprofen (Motrin) (09/25/17 20:30) MDM Medical Decision Making Medical Screen Exam Complete: Yes Emergency Medical Condition: Yes Differential Diagnosis Influenza, viral illness, bronchitis, pneumonia, strep pharyngitis Narrative Course Vital signs show heart rate 66, blood pressure 144/90, pulse ox 99% on room air , oral temp of 98.7F. Influenza and group A strep are negative. Chest x-ray: No acute cardio pulmonary process. Patient was made aware of all findings. She is likely suffering from a viral illness. She is breast-feeding a 6-week-old child at home. I advised the patient to avoid close contact as much as possible. I will also start her on a Z-Kemar for her pharyngitis/bronchitis. She was advised to follow-up with her primary care physician this week. She was informed on when to return to the emergency department. She verbalizes understanding and agreement with plan. Diagnosis Primary Impression: Pharyngitis Qualified Codes: J02.9 - Acute pharyngitis, unspecified Additional Impression: Bronchitis Referrals: Primary Care Physician 3 days Additional Instructions: Follow-up with your primary care physician this week. Stay hydrated with plenty of fluids. Return to the emergency department for worsening symptoms or any other concerns. Scripts Azithromycin (Zithromax Z-Kemar) 250 Mg Dspk 250 MG PO DIRECTED for Infection, #1 DSPK 0 Refills 500 MG (2 tabs) day 1, then 1 tab days 2-5. Prov: Bryn Elizabeth MD 09/25/17 Naproxen (Naproxen) 500 Mg Tab 500 MG PO BID for 10 Days, #20 TAB 0 Refills Prov: Bryn Elizabeth MD 09/25/17 Disposition: 01 DISCHARGE HOME Condition: Stable Bryn Elizabeth MD Sep 25, 2017 18:18
--- NOTE | 2017-09-25 18:58 | RADRPT ---
EXAM DATE/TIME: 09/25/2017 18:26 [facility] COMPARISON: No previous studies available for comparison. INDICATIONS : Sore throat, cough for 3 days. MEDICAL HISTORY : None. SURGICAL HISTORY : None. ENCOUNTER: Initial ACUITY: 3 days PAIN SCORE: 0/10 LOCATION: Bilateral chest FINDINGS: A single view of the chest demonstrates the lungs to be symmetrically aerated without evidence of mas s, infiltrate or effusion. The cardiomediastinal contours are unremarkable. Osseous structures are intact. CONCLUSION: No acute cardiopulmonary process. Tramaine Schmidt MD on September 25, 2017 at 18:56 Board Certified Radiologist. This report was verified electronically.
[2017-09-25 19:22] VITALS: BP 164/100; PULSE 65; RESP 18; O2SAT 100
[2017-09-25] MEDS ORDERED: IBUPROFEN 600 MG TAB PO ONE (20:30)
[2017-09-25] MEDS ORDERED: NAPR500T2 PO (20:31)
[2017-09-25] MEDS ORDERED: ZITHTAB PO (20:31)
== END 2017-09-25 20:48 | disposition home or self-care (01) ==
LOC: NEPD 16:19
DX: J02.9 Acute pharyngitis, unspecified (principal); J40 Bronchitis, not specified as acute or chronic; R50.9 Fever, unspecified
CPT/HCPCS: 71010; 87081; 87804; 87880; 99284

== ENCOUNTER 2017-10-29 21:28 | Emergency (ER) | payer OTHER, MEDICAID ==
[~2017-10-29] VITALS: Ht 167.6 cm; Wt 81.8 kg
[~2017-10-29 21:28] MED LIST changes: +NAPR500T2 PO; +ZITHTAB PO
[2017-10-29 21:30] VITALS: BP 180/85; PULSE 67; RESP 16; TEMP 98.2; O2SAT 98
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
[2017-10-29] MEDS ORDERED: KETOROLAC TROMETHAMINE 60 MG/2 ML (IM) VIAL IM ONE (23:45)
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
[2017-10-29] MEDS ORDERED: BACL10TA PO (23:52)
[2017-10-29] MEDS ORDERED: IBUP1TAB7 PO (23:52)
== END 2017-10-30 00:31 | disposition home or self-care (01) ==
LOC: NEPD 21:28
DX: S16.1XXA Strain of muscle, fascia and tendon at neck level, initial encounter (principal); S50.12XA Contusion of left forearm, initial encounter; S50.11XA Contusion of right forearm, initial encounter; S09.90XA Unspecified injury of head, initial encounter; V43.52XA Car driver injured in collision with other type car in traffic accident, initial encounter; W22.11XA Striking against or struck by driver side automobile airbag, initial encounter
CPT/HCPCS: 72125; 84703; 96372; 99285; J1885